=== PATIENT | male | born 1975 | race Caucasian/White ===

== ENCOUNTER 2021-06-13 08:29 | Emergency (ER) | payer OTHER ==
[~2021-06-13] VITALS: Ht 190.5 cm; Wt 71.0 kg
[2021-06-13] MEDS ORDERED: OMNI-PAC300 MG PO (09:23)
[2021-06-13 10:44] VITALS: BP 127/76
== END 2021-06-13 10:52 | disposition home or self-care (01) | DRG 605 ==
LOC: ED 08:29
PROC: 0HQ1XZZ Repair Face Skin, External Approach (ICD-10-PCS; principal; 2021-06-13)
DX: S01.412A Laceration without foreign body of left cheek and temporomandibular area, initial encounter (principal); W45.8XXA Other foreign body or object entering through skin, initial encounter; Y92.149 Unspecified place in prison as the place of occurrence of the external cause